=== PATIENT | female | born 1995 | race Caucasian/White ===

== ENCOUNTER 2017-08-02 08:28 | Emergency (ER) | payer BC, OTHER ==
[~2017-08-02] VITALS: Ht 160 cm; Wt 63.0 kg
[2017-08-02 08:40] VITALS: BP 125/78; PULSE 94; RESP 16; TEMP 99.1; O2SAT 99
[2017-08-02] MEDS ORDERED: TRINTAB7 PO (10:13)
[2017-08-02] MEDS ORDERED: VALA1TAB PO (10:13)
[2017-08-02] MEDS ORDERED: VENTAER INH (10:13)
[2017-08-02] MEDS ORDERED: BACT800T5 PO (10:43)
--- NOTE | 2017-08-02 10:43 | PD ---
HPI Chief Complaint: Skin Problem Time Seen by Provider: 10:21 Travel History International Travel<30 days: No Contact w/Intl Traveler<30days: No Traveled to known affect area: No History of Present Illness HPI 22-year-old female with possible skin infection of her upper lip. 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 She reports she gets severe fever blisters several times per year. The area on the left upper lip which started as herpes labialis is now turning increasingly more painful,swollen and red. She is concerned this is the beginning of an abscess. This was the site of a previous abscess several months ago. Denies fever chills. Symptom severity is moderate. No aggravating or alleviating factors. PFSH Past Medical History Medical History: Denies Significant Hx Respiratory: Yes (CHRONIC BRONCHITIS) Integumentary: Yes (CHRONIC COLD SORES) Immunizations Current: Yes ?: Not LMP: 3.5 WEEKS AGO Past Surgical History Oral Surgery: Yes (WISDOM TEETH REMOVED) Social History Alcohol Use: Yes (OCC) Tobacco Use: No Substance Use: No Allergies-Medications (Allergen,Severity, Reaction): Coded Allergies: No Known Allergies (Unverified , 08/02/17) Reported Meds & Prescriptions Reported Meds & Active Scripts Active Bactrim DS (Sulfamethoxazole-Trimethoprim) 800-160 Mg Tab 1 Tab PO BID Reported Ventolin Hfa 18 GM Inh (Albuterol Sulfate) 90 Mcg/Act Aer 2 Puff INH Q4-6H PRN Valacyclovir (Valacyclovir HCl) 1,000 Mg Tab 1,000 Mg PO DIRECTED Trinessa (Norgestimate-Ethinyl Estradiol) 0.18/0.215/0.25 mg-35 Mcg Tab 1 Tab PO DAILY Review of Systems Except as stated in HPI: all other systems reviewed are Neg General / Constitutional: No: Fever Physical Exam Narrative GENERAL: Alert and well-appearing 22-year-old female SKIN: Warm and dry. HEAD: Normocephalic. EYES: No injection or drainage. MOUTH: Vesicular lesions noted to the left upper lip consistent with herpes labialis. No drainage. There is surrounding erythema and acutely tender. No induration or fluctuance. NECK: Supple, trachea midline. No JVD or lymphadenopathy. CARDIOVASCULAR: Regular rate and rhythm. RESPIRATORY: Breath sounds equal bilaterally. No accessory muscle use. Data Data Last Documented VS Vital Signs Date Time Temp Pulse Resp B/P (MAP) Pulse Ox O2 Delivery O2 Flow Rate FiO2 08/02/17 08:40 99.1 94 16 125/78 (94) 99 Orders Orders Ed Discharge Order (08/02/17 10:44) MDM Medical Decision Making Medical Screen Exam Complete: Yes Emergency Medical Condition: Yes Differential Diagnosis Herpes labialis, wound infection, abscess, cellulitis Narrative Course This is a 22-year-old female here with mild wound infection to her left upper lip at the site of a herpes labialis. She is currently on acyclovir. She reports areas become increasing more red and painful. She had a similar episode several months ago where she had a wound infection and feels that this is the same. She is nontoxic appearing. Diagnosis Primary Impression: Wound infection Referrals: Primary Care Physician Scripts Sulfamethoxazole-Trimethoprim (Bactrim DS) 800-160 Mg Tab 1 TAB PO BID for Infection, #14 TAB 0 Refills Prov: Esperanza Fraire 08/02/17 Disposition: 01 DISCHARGE HOME Condition: Stable Esperanza Fraire Aug 02, 2017 10:43
== END 2017-08-02 10:54 | disposition home or self-care (01) ==
LOC: PHED 08:28 → PHEFT 10:54
DX: B00.1 Herpesviral vesicular dermatitis (principal); Z79.899 Other long term (current) drug therapy
CPT/HCPCS: 99283